=== PATIENT | female | born 1965 | race Caucasian/White ===

== ENCOUNTER 2016-10-02 15:15 | Emergency (ER) | payer BC, OTHER ==
[2016-10-02 15:27] VITALS: BMI 24.3
--- NOTE | 2016-10-02 16:16 | PDOC ---
History of Present Illness <Marcio De Santiago - Last Filed: 10/02/16 17:49> - General History Source: Patient Exam Limitations: No Limitations - History of Present Illness Initial Comments: 10/02/16 18:14 The patient is a 51 year old female, with no significant past medical history, who presents to the emergency department complaining of left calf swelling and pain since yesterday. The patient reports last night she noticed some atraumatic bruising and swelling. However, it was not until this morning that she developed pain in her left calf. She reports presenting to urgent care earlier today, where she was found to have swelling and calf-tenderness, and recommended to follow-up in the ED. The patient denies any shortness of breath, dyspnea on exertion , chest pain, syncope, palpitations, irregular heart rate, or lightheadedness. The patient reports a recent history of a ligamentous knee injury, for which she was placed on crutches for a period of 6 weeks. She states shes been off crutches for the past 3-4 weeks. The patient denies any fever, chills, cough, headache, or dizziness. The patient denies any recent travel or sick contacts. Allergies: Codeine, Bee pollen Past Surgical History: None reported. Social History: Non-smoker. Denies alcohol or drug use. <Juanpablo Carrera - Last Filed: 10/02/16 18:15> - General Chief Complaint: Pain, Acute Stated Complaint: LT LEG SWELLING (REFERRED) Time Seen by Provider: 10/02/16 15:35 Past History - Past Medical History Other medical history: denies - Immunization History Immunization Up to Date: Yes - Psycho/Social/Smoking Cessation Hx Suicidal Ideation: No Smoking History: Never smoked Hx Alcohol Use: No Drug/Substance Use Hx: No <Marcio De Santiago - Last Filed: 10/02/16 17:49> <Juanpablo Carrera - Last Filed: 10/02/16 18:15> - Past Medical History Allergies/Adverse Reactions: Allergies Allergy/AdvReac Type Severity Reaction Status Date / Time bee pollen Allergy Verified 10/02/16 15:27 codeine Allergy Verified 10/02/16 15:27 Home Medications: Ambulatory Orders NK [No Known Home Medication] 10/02/16 Review of Systems - Review of Systems Able to Perform ROS?: Yes Comments:: 10/02/16 18:14 CONSTITUTIONAL: No reported: Fever, Chills, Diaphoresis, Generalized Weakness, Malaise, Loss of Appetite HEENT: No reported: Rhinorrhea, Nasal Congestion, Throat Pain, Throat Swelling, Difficulty Swallowing, Mouth Swelling, Ear Pain, Eye Pain, Visual Changes CARDIOVASCULAR: +Edematous left calf, +left calf pain and bruising. No reported: Chest Pain, Syncope, Palpitations, Irregular Heart Rate, Lightheadedness, RESPIRATORY: No reported: Cough, Shortness of Breath, SOB with Exertion, Orthopnea, Wheezing , Stridor, Hemoptysis GASTROINTESTINAL: No reported: Abdominal pain, Abdominal Distension, Nausea, Vomiting, Diarrhea, Constipation, Melena, Hematochezia GENITOURINARY: No reported: Dysuria, Frequency, Urgency, Hesitancy, Flank Pain, Genital Pain MUSCULOSKELETAL: No reported: Arthralgia, Back pain, Neck Pain SKIN: No reported: Rash, Itching, Pallor HEMEATOLOGIC/IMMUNOLOGIC: No reported: Easy Bleeding, Easy Bruising, Lymphadenopathy, Frequent infections ENDOCRINE: No reported: Unexplained Weight Gain, Unexplained Weight Loss, Heat Intolerance , Cold Intolerance NEUROLOGIC: No reported: Headache, Focal Weakness, Paresthesias, Vertigo, Lightheadedness, Unsteady Gait, Seizure, Mental Status Changes, Incontinence PSYCHIATRIC: No reported: Anxiety, Depression <Juanpablo Carrera - Last Filed: 10/02/16 18:15> *Physical Exam - Vital Signs Last Vital Signs Temp Pulse Resp BP Pulse Ox 98.3 F 68 20 152/78 99 10/02/16 15:23 10/02/16 15:23 10/02/16 15:23 10/02/16 15:23 10/02/16 15:23 <Anyi,Marcio - Last Filed: 10/02/16 17:49> - Vital Signs Last Vital Signs Temp Pulse Resp BP Pulse Ox 98.3 F 68 20 152/78 99 10/02/16 15:23 10/02/16 15:23 10/02/16 15:23 10/02/16 15:23 10/02/16 15:23 - Physical Exam Comments: 10/02/16 18:14 GENERAL: The patient is awake, alert, and fully oriented, Nontoxic - in no acute distress. HEAD: Normocephalic, atraumatic. EYES: extraocular movements intact, sclera anicteric, conjunctiva clear. ENT: Normal voice, Moist mucous membranes. NECK: Normal range of motion, supple. LUNGS: Breath sounds equal, clear to auscultation bilaterally. No wheezes, no rhonchi, no rales. HEART: Regular rate and rhythm, normal S1 and S2 without murmur, rub or gallop. ABDOMEN: Soft, nontender, normoactive bowel sounds. No guarding, no rebound. No CVA tenderness EXTREMITIES: Normal range of motion, +1pitting edema in LLE, +calf tenderness. NEUROLOGICAL: No facial asymmetry, Normal speech,. PSYCH: Normal mood, normal affect. SKIN: Warm, Dry, normal turgor. <Juanpablo Carrera - Last Filed: 10/02/16 18:15> ED Treatment Course - RADIOLOGY Radiology Studies Ordered: Category Date Time Status DUPLEX VASCUL US-1 LEG [US] Stat Ultrasound 10/02/16 16:14 Ordered <Marcio De Santiago - Last Filed: 10/02/16 17:49> - ADDITIONAL ORDERS Additional order review: Laboratory Results 10/02/16 16:00 Urine HCG, Qual Negative - RADIOLOGY Radiograph Interpretation: 10/02/16 17:30 EXAM: US of Left leg INTERPRETED BY:Dr. Garza REVIEWED BY: Dr. De Santiago IMPRESSION: No DVT in the left lower extremity. <Juanpablo Carrera - Last Filed: 10/02/16 18:15> Medical Decision Making - Medical Decision Making 10/02/16 16:15 51y F no pmhx sent to the ED for evaluation of LLE edema and calf marcus - recent knee injury when she was on crutches, has been off for the past 2-3 weeks, swelling since last night an dpain since this morning. no sob/cp/cough. will obtain duplex to ro dvt pt took her own ibuprofen for discomfort. 10/02/16 17:22 pts LLE duplex is neative for dvt will dc the pt to fu with pmd return precautions were discussed I discussed the physical exam findings, ancillary test results and final diagnoses with the patient. I answered all of the patient's questions. The patient was satisfied with the care received and felt comfortable with the discharge plan and treatment plan. The patient will call their primary care physician within 24 hours to arrange follow-up and will return to the Emergency Department with any new, persistent or worsening symptoms. <Marcio De Santiago - Last Filed: 10/02/16 17:49> *DC/Admit/Observation/Transfer - Discharge Dispostion Admit: No <Marcio De Santiago - Last Filed: 10/02/16 17:49> - Attestations Scribe Attestion: 10/02/16 18:15 Documentation prepared by Juanpablo Carrera, acting as medical cost consultant for Marcio De Santiago MD. <Juanpablo Carrera - Last Filed: 10/02/16 18:15> Diagnosis at time of Disposition: Lower extremity edema Qualifiers: Laterality: left Qualified Code(s): R60.0 - Localized edema - Discharge Dispostion Disposition: HOME Condition at time of disposition: Improved - Referrals Referrals: [facility] [Provider Group] - Patient Instructions Printed Discharge Instructions: DI for Peripheral Edema, Unilateral Additional Instructions: Return to the emergency department immediately with ANY new, persistent or worsening symptoms. You MUST call and follow up with your doctor tomorrow for further evaluation of your symptoms. Results were discussed with you. Please make sure your doctor reviews the results of your emergency evaluation. If you had any xrays during your visit, it was read preliminarily by myself, a Radiologist will review it and if there are any additional findings we will call you. Print Language: SAO TOMEAN
[2016-10-02 18:32] VITALS: BP 128/69; PULSE 69; TEMP 98
== END 2016-10-02 17:40 | disposition home or self-care (01) ==
LOC: JER 15:15
DX: R60.0 Localized edema (principal)
CPT/HCPCS: 84703; 93971-TC; 99282-25

== ENCOUNTER 2017-01-31 17:06 | Emergency (ER) | payer OTHER ==
[2017-01-31 17:16] VITALS: BP 114/80; PULSE 74; TEMP 98; BMI 26.3
[2017-01-31] MEDS ORDERED: KETOROLAC TROMETHAMINE 60 MG/2 ML VIAL IM ONE (17:53)
[2017-01-31] MEDS ORDERED: KETOROLAC TROMETHAMINE 60 MG/2 ML VIAL ONE (17:57)
--- NOTE | 2017-01-31 18:41 | PDOC ---
History of Present Illness - General Chief Complaint: Injury Stated Complaint: INJURY Time Seen by Provider: 01/31/17 17:17 - History of Present Illness Initial Comments: 01/31/17 18:36 CHIEF COMPLAINT: pinky pain HISTORY OF PRESENT ILLNESS: 51 yo F presents to [facility] with L pinky pain s/ p injury just prior to arrival. Patient states she was "playing in the pool and tried to catch a football, but it hit it the wrong way and bent it backwards , and I had to kind of push it back into place and now I think it's broken." She states she is unable to make a fist with her fingers at this time. No recent travel or sick contacts. PAST MEDICAL HISTORY: Denies past medical history FAMILY HISTORY: Denies SOCIAL HISTORY: Denies tobacco, alcohol, illicit drug use. SURGICAL HISTORY: Denies ALLERGIES: codeine REVIEW OF SYSTEMS General/Constitutional: Denies fever or chills. Denies weakness, weight change. HEENT: Denies change in vision. Denies ear pain or discharge. Denies sore throat. Cardiovascular: Denies chest pain or shortness of breath. Respiratory: Denies cough, wheezing, or hemoptysis. Gastrointestinal: Denies nausea, vomiting, diarrhea or constipation. Denies rectal bleeding. Genitourinary: Denies dysuria, frequency, or change in urination. Musculoskeletal: Pain to L pinky. Skin and breasts: Denies rash or easy bruising. Neurologic: Denies headache, vertigo, loss of consciousness, or loss of sensation. PHYSICAL EXAM General Appearance: Well-appearing, appropriately dressed. No apparent distress , no intoxication. HEENT: EOMI, PERRLA, normal ENT inspection, normal voice, TMs normal, pharynx normal. No conjunctival pallor. No photophobia, scleral icterus. Neck: Supple. Trachea midline. No tenderness, rigidity, carotid bruit, stridor , lymphadenopathy, or thyromegaly. Respiratory/Chest: Lungs CTAB. No shortness of breath, chest tenderness, respiratory distress, accessory muscle use. No crackles, rales, rhonchi, stridor , wheezing, dullness Cardiovascular: RRR. S1, S2. Musculoskeletal/Extremities: Tenderness to L pinky, limited ROM. Normal inspection. FROM of all extremities, normal capillary refill. Pelvis Stable. No CVA tenderness. No tenderness to extremities, pedal edema, swelling, erythema or deformity. Integumentary: Appropriate color, dry, warm. No cyanosis, erythema, jaundice or rash Neurologic: contamination consultant II-XII intact. Fully oriented, alert. Appropriate mood/affect. Motor strength 5/5. No appreciable EOM palsy, facial droop or sensory deficit. Past History - Past Medical History Allergies/Adverse Reactions: Allergies Allergy/AdvReac Type Severity Reaction Status Date / Time bee pollen Allergy Verified 01/31/17 17:16 codeine Allergy Verified 01/31/17 17:16 Home Medications: Ambulatory Orders Diclofenac Sodium [Voltaren] 1 applic TP Q4H PRN #1 tube 01/31/17 - Surgical History Appendectomy: Yes - Immunization History Immunization Up to Date: Yes - Psycho/Social/Smoking Cessation Hx Suicidal Ideation: No Smoking History: Never smoked Information on smoking cessation initiated: No Hx Alcohol Use: No Drug/Substance Use Hx: No *Physical Exam - Vital Signs Last Vital Signs Temp Pulse Resp BP Pulse Ox 98 F 74 18 114/80 98 01/31/17 17:13 01/31/17 17:13 01/31/17 17:13 01/31/17 17:13 01/31/17 17:13 ED Treatment Course - RADIOLOGY Radiology Studies Ordered: Category Date Time Status FINGER(S) LEFT [RAD] Stat Radiology 01/31/17 17:53 Taken FINGER(S) LEFT [RAD] Stat Radiology 01/31/17 18:34 Ordered - Medications Given in the ED: ED Medications Discontinued Medications Generic Name Dose Route Start Last Admin Trade Name Freq PRN Reason Stop Dose Admin Ketorolac Tromethamine 60 mg 01/31/17 17:53 01/31/17 18:13 Toradol Injection - IM 01/31/17 17:54 60 mg ONCE ONE Administration Medical Decision Making - Medical Decision Making 01/31/17 18:40 51 yo F presents to fast track with L pinky pain s/p injury just prior to arrival. -L fingers x-ray X-ray wet read negative for fracture. 60 mg IM Toradol *DC/Admit/Observation/Transfer Diagnosis at time of Disposition: Finger injury Qualifiers: Encounter type: initial encounter Laterality: left Qualified Code(s): S69.92XA - Unspecified injury of left wrist, hand and finger(s), initial encounter - Discharge Dispostion Disposition: HOME Condition at time of disposition: Stable Admit: No - Prescriptions Prescriptions: Diclofenac Sodium [Voltaren] 1 applic TP Q4H PRN #1 tube PRN Reason: Pain - Referrals Referrals: Iván Paredes [Primary Care Provider] - - Patient Instructions Printed Discharge Instructions: DI for Finger Sprain Additional Instructions: Please use medication as prescribed. If pain persists for more than 3-4 days, please follow up with orthopedics (referral provided). If you experience any numbness, tingling, or loss of sensation to your finger, please return to the ER. - Post Discharge Activity
--- NOTE | 2017-02-01 17:43 | PDOC ---
Patient Follow-up (Call Back) - Post ED Follow - Up Condition at time of discharge: Stable Disposition at time of original discharge: HOME Reason for Call Back: Radiology (X-ray demonstrated a cortical lucency through the ulnar aspect of the proximal phalanx suspicion of a nondisplaced fracture, patient states that her hand is with increased edema and "black and blue" and told to return to emergency department for splinting and follow-up information regarding orthopedic.)
== END 2017-01-31 19:03 | disposition home or self-care (01) ==
LOC: JERFT 17:06
PROC: 3E0233Z Introduction of Anti-inflammatory into Muscle, Percutaneous Approach (ICD-10-PCS; principal; 2017-01-31)
DX: S69.82XA Other specified injuries of left wrist, hand and finger(s), initial encounter (principal); W21.01XA Struck by football, initial encounter; Y93.89 Activity, other specified; Y92.34 Swimming pool (public) as the place of occurrence of the external cause; Y99.8 Other external cause status
CPT/HCPCS: 73140-TC-LT; 96372; 99281-25

== ENCOUNTER 2017-02-01 18:26 | Emergency (ER) | payer OTHER ==
[2017-02-01 19:00] VITALS: BP 156/93; PULSE 70; TEMP 98.4; BMI 25.4
--- NOTE | 2017-02-01 19:46 | PDOC ---
History of Present Illness - General Chief Complaint: Injury Stated Complaint: L HAND INJURY/PAIN Time Seen by Provider: 02/01/17 19:43 History Source: Patient Exam Limitations: No Limitations - History of Present Illness Initial Comments: 02/01/17 19:43 51 yr female called into the ER for a splint to be placed on her finger. Past History - Past Medical History Allergies/Adverse Reactions: Allergies Allergy/AdvReac Type Severity Reaction Status Date / Time bee pollen Allergy Verified 02/01/17 18:55 codeine Allergy Verified 02/01/17 18:55 Home Medications: Ambulatory Orders Tramadol HCl 50 mg PO QID PRN #8 tablet MDD 200mg 02/01/17 Other medical history: denies. - Surgical History Appendectomy: Yes - Immunization History Immunization Up to Date: Yes - Psycho/Social/Smoking Cessation Hx Suicidal Ideation: No Smoking History: Never smoked Hx Alcohol Use: No Drug/Substance Use Hx: No *Physical Exam - Vital Signs Last Vital Signs Temp Pulse Resp BP Pulse Ox 98.4 F 70 19 156/93 97 02/01/17 18:55 02/01/17 18:55 02/01/17 18:55 02/01/17 18:55 02/01/17 18:55 - Physical Exam General Appearance: Yes: Nourished, Appropriately Dressed Extremity: positive: Normal Capillary Refill, Tender (left hand base of 4th,5th digits and palmar surface with ecymosis, nv intact) Integumentary: positive: Normal Color, Dry, Warm Neurologic: positive: Fully Oriented, Alert, Normal Mood/Affect, Normal Response , Motor Strength 5/5 Procedures - Splinting Hand-Made Type: orthoglass Splint Type: Yes: Short Arm (short arm splint placed to the 4th and 5th digits above wrist by Pat Silverman NP ) Post-Proc Neuro Vasc Exam: normal Progress: 02/01/17 19:44 orthoglass Medical Decision Making - Medical Decision Making 02/01/17 20:09 cc: left hand injury recalled for splint for positive fracture nv intact Pat Silverman SEISMIC INTERPRETER placed short arm splint to the left hand pt satisfied with the care and the plan for follow up *DC/Admit/Observation/Transfer Diagnosis at time of Disposition: Hand fracture, left Qualifiers: Encounter type: initial encounter Fracture type: closed Qualified Code(s): S62.92XA - Unspecified fracture of left wrist and hand, initial encounter for closed fracture - Discharge Dispostion Disposition: HOME Condition at time of disposition: Good - Prescriptions Prescriptions: Tramadol HCl 50 mg PO QID PRN #8 tablet MDD 200mg PRN Reason: Severe Pain - Referrals Referrals: Iván Paredes [Primary Care Provider] - Scottie Calloway MD [Staff Physician] - - Patient Instructions Additional Instructions: follow with the orthopedist for follow up in 7-10 days keep the splint intact do not get wet or remove
== END 2017-02-01 20:35 | disposition home or self-care (01) ==
LOC: JERFT 18:26
PROC: 2W3DX1Z Immobilization of Left Lower Arm using Splint (ICD-10-PCS; principal; 2017-02-01)
DX: S62.92XD Unspecified fracture of left hand, subsequent encounter for fracture with routine healing (principal); X58.XXXD Exposure to other specified factors, subsequent encounter; Z47.89 Encounter for other orthopedic aftercare
CPT/HCPCS: 29125; 73130-TC-LT; 99282-25